=== PATIENT | female | born 1935 | race Caucasian/White ===

== ENCOUNTER 2021-04-24 11:08 | Emergency (ER) | payer MEDICARE, BC ==
--- NOTE | 2021-04-24 11:23 | EDM.PDOC ---
ED HPI GENERAL MEDICAL PROBLEM - General Chief Complaint: ENT Problem Stated Complaint: FACE INJURY Time Seen by Provider: 04/24/21 11:22 Source of Information: Reports: Patient, Family - History of Present Illness INITIAL COMMENTS - FREE TEXT/NARRATIVE: Kaye, 85-year-old female, presents today accompanied by her granddaughter for evaluation of what appears to be raccoons eyes. Yesterday afternoon at roughly 1600 hrs. tripped on a folding chair in the yard falling forward striking the bridge of her nose with her glasses onto the edge of the chair. She did not get her arms out in an attempt to catch herself. She denies loss of consciousness. She denies headache or change in mentation at the time of the incident, nor since then. She did have a significant epistaxis event which was controlled with pressure and time. There was minimal evidence other than where the pads of her glasses struck the bridge of the nose as far as any injury. Minimal swelling to place at that time and when they finished their family gathering she went home with her granddaughter to prepare for bed with no complaints other than mild tenderness to the dentures under the nose. She removed her dentures for cleaning and states there is no fractures or cracks noted in them but does note discomfort when returning them this morning with a pressure sensation under the nose of the maxilla and the nose itself to the medial zygomatic region. Granddaughter did a thorough assessment that there was no nystagmus extraocular motion was intact with no evidence of entrapment and that there was no urgent/emergent criteria that they felt she needed to be evaluated at the time of the incident. She is brought in this morning secondary of significant ecchymosis that presented as well as associated facial pain. She is on Plavix so risk of bleeding is slightly higher. This was a ground-level fall with no contributing factors for trauma activation. Onset Date: 04/23/21 Onset Time: 16:00 Duration: Hour(s):, Getting Worse Location: Reports: Head, Face Quality: Reports: Other (Denies any pain to the head, has mild tenderness to the base of the nostrils bilateral as well as to the medial zygoma region.) Bilateral Middle Face/Facial Pain Score (Numeric/FACES): 0 - Related Data Allergies Allergy/AdvReac Type Severity Reaction Status Date / Time Penicillins Allergy Mild Swelling Verified 04/24/21 11:52 Home Meds: Home Meds Insulin Glarg,Human.Rec.Analog [Lantus Solostar] 12 units SUBCUT BEDTIME 01/14/15 [History] Losartan Potassium 100 mg PO BEDTIME 01/14/15 [History] Metoprolol Succinate [Toprol XL] 100 mg PO BEDTIME 01/14/15 [History] Potassium Chloride 10 meq PO BEDTIME 01/14/15 [History] Sertraline [Zoloft] 100 mg PO BEDTIME 01/14/15 [History] metFORMIN HCl [Metformin HCl ER] 1,000 mg PO BEDTIME 01/14/15 [History] Calcium Carbonate/Vitamin D3 [Calcium 600 + Vit D Tablet] 1 tab PO DAILY 07/27/16 [History] Cholecalciferol (Vitamin D3) [Vitamin D3] 2,000 unit PO BEDTIME 07/27/16 [History] Clopidogrel [Plavix] 75 mg PO BEDTIME 07/27/16 [History] Cyanocobalamin/Folic AC/Vit B6 [Folbee] 1 each PO BEDTIME 07/27/16 [History] Denosumab [Prolia] 60 mg SUBCUT ASDIRECTED 07/27/16 [History] Multivitamin [Multivitamins] 1 tab PO BEDTIME 07/27/16 [History] Pantoprazole Sodium [Protonix] 20 mg PO BEDTIME 07/28/16 [History] amLODIPine [Norvasc] 10 mg PO BEDTIME 07/28/16 [History] atorvaSTATin [Lipitor] 40 mg PO BEDTIME 07/28/16 [History] cloNIDine [Catapres] 0.1 mg PO TID PRN 07/04/18 [History] Latanoprost [Xalatan 0.005% Ophth Soln] 1 drop EYEBOTH BEDTIME 07/05/18 [History ] Meclizine [Antivert] 25 mg PO Q6H PRN #30 tablet 07/17/18 [Rx] Doxycycline Hyclate 100 mg PO BID 5 Days #10 capsule 04/24/21 [Rx] metFORMIN [Glucophage XR] 1,000 mg PO DAILY 04/24/21 [History] Past Medical History HEENT History: Reports: Cataract, Impaired Vision, Other (See Below) (Dentures upper/lower) Cardiovascular History: Reports: High Cholesterol, Hypertension Respiratory History: Reports: None Gastrointestinal History: Reports: Colon Polyp, Hemorrhoids Genitourinary History: Reports: Urinary Incontinence 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: Musculoskeletal History: Reports: Arthritis, Osteoarthritis Neurological History: Reports: CVA, Migraines, Neuropathy, Diabetic Psychiatric History: Reports: Depression Endocrine/Metabolic History: Reports: Diabetes, Type II, Osteoporosis Hematologic History: Reports: Anticoagulation Therapy Oncologic (Cancer) History: Reports: None Dermatologic History: Reports: None - Infectious Disease History Infectious Disease History: Reports: Measles, Mumps - Past Surgical History HEENT Surgical History: Reports: Cataract Surgery - Past Imaging History Past Imaging History: Reports: Carotid US, CAT Scan, MRI, Xray Social & Family History - Family History Family Medical History: No Pertinent Family History Cardiac: Reports: Heart Failure, Hypertension Respiratory: Reports: None GI: Reports: None : Reports: None OBGYN: Reports: None Musculoskeletal: Reports: None Neurological: Reports: None Psychiatric: Reports: None Endocrine/Metabolic: Reports: Diabetes, type II Hematologic: Reports: None Immunologic: Reports: None Dermatologic: Reports: None Oncologic: Reports: None - Caffeine Use Caffeine Use: Reports: Coffee ED ROS GENERAL - Review of Systems Review Of Systems: Comprehensive ROS is negative, except as noted in HPI. ED EXAM, GENERAL - Physical Exam Exam: See Below Free Text/Narrative:: Alert, oriented, cheerful in no acute distress. She demonstrates NO deficits to motion of extremities, nor to following command. Quite evident bilateral Mary eyes are present with no entrapment of her extraocular ocular motion. PERRLA, somewhat constricted as would be typical for age. Limited nondilated funduscopy is benign. There is no involvement of the auditory canals or tympanic membranes, negative hemotympanum. Mild tenderness as would be expected to the zygomatic arch medially and to the nose. There are imprints with superficial skin irritation/abrasions from the pads of her glasses to the bilateral bridge of the nose with no evidence of infectious or irritated process. Nasal passages are swollen as well as the nose in general. Tenderness to the bridge of the nose as well as the medial zygomatic arch and to the base of the nose at the septum. There is no tenderness to the spinal processes with negative Nexus criteria. There is mild musculature at the base of the neck and bilateral into the shoulders. No irritation of the oral cavity is noted her dentures are in place and appear to be appropriately fitting with no significant malocclusion, but tenderness under the nose with closure of the teeth. Thorax is clear, slightly diminished bases with no wheezes no crackles. Cardiac is regular with an occasional ectopic beat no evidence of murmur. There is no injury nor complaint to the upper extremities chest wall abdomen pelvis or lower extremities. She is ambulatory with no deficits appreciated. AFO in place. Tenderness to the facial bones on examination, with the visual appearance seemingly much more severe than the actual physical findings at this time. Course - Vital Signs Last Recorded V/S: Last Vital Signs Temp 96.5 F L 04/24/21 11:24 Pulse 60 04/24/21 13:30 Resp 18 04/24/21 13:30 BP 158/65 H 04/24/21 13:30 Pulse Ox 94 L 04/24/21 13:30 - Orders/Labs/Meds Orders: Active Orders 24 hr Category Date Time Status Vaccines to be Administered [RC] PER UNIT ROUTINE Care 04/24/21 13:45 Ordered Meds: Medications Discontinued Medications Generic Name Dose Route Start Last Admin Trade Name Freq PRN Reason Stop Dose Admin Diphtheria/Tetanus/Acell Pertussis 0.5 ml 04/24/21 13:45 04/24/21 13:51 Diphtheria,Pertussis(Acell),Tetanus Vaccine 0.5 Ml Syringe IM 04/24/21 13:46 0.5 ml .ONCE ONE Administration Doxycycline Hyclate 400 mg 04/24/21 13:57 04/24/21 14:07 Doxycycline 50 Mg Cap PO 04/24/21 13:58 400 mg ONETIME ONE Administration Departure - Departure Time of Disposition: 14:06 Disposition: Home, Self-Care 01 Condition: Good Clinical Impression: Fractured nasal bones, Fall as cause of accidental injury at home as place of occurrence, Facial swelling, Anticoagulant long-term use, Abrasion of nose, initial encounter - Discharge Information *PRESCRIPTION DRUG MONITORING PROGRAM REVIEWED*: Not Applicable *COPY OF PRESCRIPTION DRUG MONITORING REPORT IN PATIENT JOVANI: Not Applicable Prescriptions: Doxycycline Hyclate 100 mg PO BID 5 Days #10 capsule Instructions: Nasal Fracture, [id number], Abrasion, [id number] Referrals: Marjan Thomas NP [Primary Care Provider] - Forms: ED Department Discharge Additional Instructions: You have fractured your nose, there is slight deviation of the septum to the right. No other facial injuries of the bone structure is noted. There was no evidence of any damage to the skull or brain. Your tetanus status was updated as it was due. The fact that you abrasions to the skin over the site of the fracture puts you at a higher risk of infectious concerns with a noted fracture. Although this is not what we would consider an open fracture, putting you on antibiotic for the skin involvement that is very close to the fracture site is the safest route to go. You will take doxycycline 100 mg twice daily for 1 week to prevent infection development. You can take all of your medications as directed with no change in your regular regimen. You may take acetaminophen/Tylenol as needed for pain up to 3000 mg total daily. You may continue to apply ice to help control swelling as well as discomfort. You need to contact your clinic for recheck appointment preferably by in the event that you need urgent consult with ENT. Typically ENT will not perform any procedures with the significance of the swelling you have at this time as some of the deviation may correct itself as swelling reduces. This opinion would change if you are experiencing persistent bleeding or difficulty breathing. You need to be sooner at the clinic or return to the emergency department if you should develop difficulty breathing, or bleeding that is not controlled with pressure to the nose. Sepsis Event Note (ED) - Focused Exam Vital Signs: Vital Signs Temp Pulse Resp BP Pulse Ox 04/24/21 13:30 60 18 158/65 H 94 L 04/24/21 12:45 60 18 164/67 H 93 L 04/24/21 12:00 60 18 156/67 H 94 L 04/24/21 11:30 63 20 162/68 H 96 04/24/21 11:24 96.5 F L 65 18 165/65 H 04/24/21 11:20 96.5 F L 65 18 165/65 H - Problem List & Annotations (1) Fall as cause of accidental injury at home as place of occurrence SNOMED Code(s): 15807514 Code(s): W19.XXXA - UNSPECIFIED FALL, INITIAL ENCOUNTER; Y92.009 - UNSP PLACE IN UNSP NON-[facility]ENCE [facility] Status: Acute Priority: High Current Visit: Yes Qualifiers: Encounter type: initial encounter Qualified Code(s): W19.XXXA - Unspecified fall, initial encounter; Y92.009 - Unspecified place in unspecified non- institutional (private) residence as the place of occurrence of the external cause (2) Facial swelling SNOMED Code(s): 741411500 Code(s): R22.0 - LOCALIZED SWELLING, MASS AND LUMP, HEAD Status: Acute Priority: High Current Visit: Yes (3) Traumatic ecchymosis of face SNOMED Code(s): 510523291, 562636801 Code(s): S00.83XA - CONTUSION OF OTHER PART OF HEAD, INITIAL ENCOUNTER Status: Acute Priority: High Current Visit: Yes Qualifiers: Encounter type: initial encounter Qualified Code(s): S00.83XA - Contusion of other part of head, initial encounter (4) Anticoagulant long-term use SNOMED Code(s): 672972843 Code(s): Z79.01 - SENIOR LIVING (CURRENT) USE OF ANTICOAGULANTS Status: Acute Current Visit: Yes Annotation/Comment:: Plavix (5) Fractured nasal bones SNOMED Code(s): 132616835 Code(s): S02.2XXA - FRACTURE OF NASAL BONES, INIT ENCNTR FOR CLOSED FRACTURE Status: Acute Priority: High Current Visit: Yes Qualifiers: Encounter type: initial encounter Fracture type: closed Qualified Cod e(s): S02.2XXA - Fracture of nasal bones, initial encounter for closed fracture (6) Abrasion of nose, initial encounter SNOMED Code(s): 797476480 Code(s): S00.31XA - ABRASION OF NOSE, INITIAL ENCOUNTER Status: Acute Priority: High Current Visit: Yes - Problem List Review Problem List Initiated/Reviewed/Updated: Yes - My Orders Last 24 Hours: My Active Orders 04/24/21 13:45 Vaccines to be Administered [RC] PER UNIT ROUTINE - Assessment/Plan Last 24 Hours: My Active Orders 04/24/21 13:45 Vaccines to be Administered [RC] PER UNIT ROUTINE Plan: You have fractured your nose, there is slight deviation of the septum to the right. No other facial injuries of the bone structure is noted. There was no evidence of any damage to the skull or brain. Your tetanus status was updated as it was due. The fact that you abrasions to the skin over the site of the fracture puts you at a higher risk of infectious concerns with a noted fracture. Although this is not what we would consider an open fracture, putting you on antibiotic for the skin involvement that is very close to the fracture site is the safest route to go. You will take doxycycline 100 mg twice daily for 1 week to prevent infection development. You can take all of your medications as directed with no change in your regular regimen. You may take acetaminophen/Tylenol as needed for pain up to 3000 mg total daily. You may continue to apply ice to help control swelling as well as discomfort. You need to contact your clinic for recheck appointment preferably by in the event that you need urgent consult with ENT. Typically ENT will not perform any procedures with the significance of the swelling you have at this time as some of the deviation may correct itself as swelling reduces. This opinion would change if you are experiencing persistent bleeding or difficulty breathing. You need to be sooner at the clinic or return to the emergency department if you should develop difficulty breathing, or bleeding that is not controlled with pressure to the nose.
--- NOTE | 2021-04-24 13:25 | CT ---
[id number] CT/CT Head WO IV EXAM: CT Head WO IV CLINICAL DATA: FALL, "COON EYES", FACIAL PAIN. COMPARISON STUDY: None FINDINGS: No intracranial hemorrhage, extra-axial fluid collection, mass, or acute ischemia. Generalized parenchymal atrophy with scattered areas of nonspecific white matter disease, commonly seen as sequela of chronic microvascular ischemia. Soft tissues are unremarkable. Paranasal sinuses and mastoid air cells are clear. IMPRESSION: No acute intracranial findings. Chu Green DO 04/24/21 2088 Thank you for allowing us to participate in the care of your patient.
--- NOTE | 2021-04-24 13:26 | CT ---
[id number] CT/CT Facial Bones WO IV EXAM: CT FACIAL BONES. INDICATION: FALL, "COON EYES". COMPARISON: None. DISCUSSION: Acute multi fragmentary bilateral nasal bone fractures. The nasal septum is deviated to the right. No other facial bone fractures are identified. The paranasal sinuses are normally aerated. No air-fluid levels. Left periorbital soft tissue edema. The globes are intact. IMPRESSION: 1. Acute multi fragmentary bilateral nasal bone fractures. No other facial bone fractures are identified. Chu Green DO 04/24/21 3478 Thank you for allowing us to participate in the care of your patient.
[2021-04-24 13:42] VITALS: PULSE 60
[2021-04-24] MEDS ORDERED: Diphtheria,Pertussis(Acell),Tetanus Vaccine 0.5 ML Syringe IM ONE (13:45)
[2021-04-24 13:46] VITALS: BP 158/65
== END 2021-04-24 14:25 | disposition home or self-care (01) ==
LOC: KA.ED 11:08
DX: S02.2XXA Fracture of nasal bones, initial encounter for closed fracture (principal); E78.00 Pure hypercholesterolemia, unspecified; I10 Essential (primary) hypertension; E11.40 Type 2 diabetes mellitus with diabetic neuropathy, unspecified; Z86.73 Personal history of transient ischemic attack (TIA), and cerebral infarction without residual deficits; Z88.0 Allergy status to penicillin; Z79.01 Long term (current) use of anticoagulants; Z23 Encounter for immunization; W01.198A Fall on same level from slipping, tripping and stumbling with subsequent striking against other object, initial encounter; Y92.009 Unspecified place in unspecified non-institutional (private) residence as the place of occurrence of the external cause
CPT/HCPCS: 70450; 70486; 90471; 90715; 99283-25; 99284; A9270-GY

== ENCOUNTER 2023-01-23 18:55 | Observation (INO) | payer MEDICARE, BC ==
[2023-01-23] MEDS ORDERED: Sodium Chloride 0.9% 10 ML Syringe FLUSH PRN (19:03)
[2023-01-23 19:27] LABS: BASOPHILS ABSOLUTE AUTO 0.03 10^3/uL (0.00-0.10); BASOPHILS PERCENT AUTO 0.6 % (0.0-1.0); EOSINOPHILS ABSOLUTE AUTO 0.09 10^3/uL (0.10-0.30); EOSINOPHILS PERCENT AUTO 1.8 % (1.0-3.0); HEMATOCRIT 32.8 % (37.0-47.0); HEMOGLOBIN 10.9 g/dL (12.0-16.0); IMMATURE GRAN ABSOLUTE AUTO 0.01 10^3/uL (0.00-0.50); IMMATURE GRAN PERCENT AUTO 0.2 % (0.0-5.0); LYMPHOCYTES ABSOLUTE AUTO 1.39 10^3/uL (1.00-4.00); LYMPHOCYTES PERCENT AUTO 27.7 % (20.0-40.0); MEAN CORPUSCULAR HEMOGLOBIN 28.8 pg (27.0-31.0); MEAN CORPUSCULAR HGB CONC 33.2 g/dL (32.0-36.0); MEAN CORPUSCULAR VOLUME 86.8 fL (82.0-92.0); MEAN PLATELET VOLUME 10.6 fL (7.4-10.4); MONOCYTES ABSOLUTE AUTO 0.78 10^3/uL (0.10-0.80); MONOCYTES PERCENT AUTO 15.6 % (2.0-8.0); NEUTROPHILS ABSOLUTE AUTO 2.71 10^3/uL (2.50-7.00); NEUTROPHILS PERCENT AUTO 54.1 % (50.0-70.0); PLATELET COUNT,PLT 144 10^3/uL (150-400); RED BLOOD CELL COUNT 3.78 10^6/uL (3.80-5.50); RED CELL DISTRIBUTION WIDTH 14.1 % (11.5-14.5); WHITE BLOOD CELL COUNT,WBC 5.01 10^3/uL (5.00-10.00)
[2023-01-23 19:46] LABS: ALBUMIN 3.49 g/dL (3.40-5.00); ANION GAP 11.9 mmol/L (5-15); BILIRUBIN TOTAL 0.4 mg/dL (0.2-1.0); CARBON DIOXIDE,CO2 29.5 mmol/L (21.0-32.0); EST CRCL DRUG DOSING (CG) 34.87 mL/min; POTASSIUM,K 4.4 mmol/L (3.5-5.1); PROTEIN TOTAL,TP 6.9 g/dL (6.4-8.2)
[2023-01-23 19:49] LABS: PROTHROMBIN TIME 10.2 SEC (9.2-11.2); PTT,PARTIAL THROMBOPLSTIN TIME 21.7 SEC (22.8-31.4)
[2023-01-23] MEDS ORDERED: Aspirin 81 MG Tab.Chew PO ONE (20:24)
[2023-01-23] MEDS ORDERED: Meclizine 25 MG Tab PO PRN (22:30)
[2023-01-24] MEDS: metFORMIN 500 MG Tab.ER PO SCH (08:15)
[2023-01-24] MEDS: Lutein/Minerals/Vitamins A, C & E Tab PO SCH (08:15)
[2023-01-24] MEDS: Metoprolol Succinate 50 MG Tab.ER PO SCH (08:17)
[2023-01-24] MEDS ORDERED: amLODIPine 2.5 MG Tab PO SCH (09:00)
[2023-01-24] MEDS ORDERED: Hydrochlorothiazide 12.5 MG Cap PO SCH (09:00)
[2023-01-24] MEDS: Aspirin 325 MG Tab.EC PO SCH (20:00)
[2023-01-24] MEDS ORDERED: Sertraline 50 MG Tab PO SCH (21:00)
[2023-01-24] MEDS ORDERED: Pantoprazole 20 MG Tab, Delayed Release PO SCH (21:00)
[2023-01-24] MEDS ORDERED: Clopidogrel 75 MG Tab PO SCH (21:00)
[2023-01-24] MEDS ORDERED: Cholecalciferol (Vitamin D3) 25 MCG Tab PO SCH (21:00)
[2023-01-24] MEDS ORDERED: Losartan 50 MG Tab PO SCH (21:00)
[2023-01-24] MEDS ORDERED: atorvaSTATin 40 MG Tab PO SCH (21:00)
[2023-01-25] MEDS: Metoprolol Succinate 50 MG Tab.ER PO SCH (09:00)
[2023-01-25 09:01] VITALS: BP 114/56; PULSE 70
[2023-01-25] MEDS: Aspirin 325 MG Tab.EC PO SCH (09:01)
[2023-01-25] MEDS: Lutein/Minerals/Vitamins A, C & E Tab PO SCH (09:01)
[2023-01-25] MEDS: metFORMIN 500 MG Tab.ER PO SCH (09:01)
[2023-01-25] MEDS ORDERED: Losartan 50 MG Tab PO SCH (21:00)
== END 2023-01-25 10:10 ==
LOC: KA.ED 18:55 → UNDOADMOB 20:27 → KA.MS 20:27
PROVIDERS: ADMIT Family Medicine; ATTEND Family Medicine
DX: R53.1 Weakness (principal); I65.23 Occlusion and stenosis of bilateral carotid arteries; I10 Essential (primary) hypertension; M81.0 Age-related osteoporosis without current pathological fracture; K21.9 Gastro-esophageal reflux disease without esophagitis; F32.A Depression, unspecified; E78.00 Pure hypercholesterolemia, unspecified; G43.909 Migraine, unspecified, not intractable, without status migrainosus; E11.40 Type 2 diabetes mellitus with diabetic neuropathy, unspecified; Z79.84 Long term (current) use of oral hypoglycemic drugs; Z86.73 Personal history of transient ischemic attack (TIA), and cerebral infarction without residual deficits; Z79.899 Other long term (current) drug therapy; Z79.82 Long term (current) use of aspirin; Z98.890 Other specified postprocedural states; Z88.0 Allergy status to penicillin; Z79.4 Long term (current) use of insulin
CPT/HCPCS: 36415; 70450; 71045; 80053; 82947; 84484; 85025; 85610; 85730; 93005; 97161-GP; 99285; A9270-GY; G0378; Q3014

== ENCOUNTER 2023-08-27 17:45 | Emergency (ER) | payer MEDICARE, BC ==
[2023-08-27] MEDS ORDERED: Sodium Chloride 0.9% 10 ML Syringe FLUSH PRN (17:50)
[2023-08-27] MEDS ORDERED: hydrALAZINE 20 MG/ML SDV IVPUSH ONE (18:17)
[2023-08-27 18:30] LABS: BASOPHILS ABSOLUTE AUTO 0.01 10^3/uL (0.00-0.10); BASOPHILS PERCENT AUTO 0.2 % (0.0-1.0); EOSINOPHILS ABSOLUTE AUTO 0.16 10^3/uL (0.10-0.30); EOSINOPHILS PERCENT AUTO 3.2 % (1.0-3.0); HEMATOCRIT 32.5 % (37.0-47.0); HEMOGLOBIN 10.7 g/dL (12.0-16.0); IMMATURE GRAN ABSOLUTE AUTO 0.01 10^3/uL (0.00-0.50); IMMATURE GRAN PERCENT AUTO 0.2 % (0.0-5.0); LYMPHOCYTES ABSOLUTE AUTO 0.69 10^3/uL (1.00-4.00); LYMPHOCYTES PERCENT AUTO 13.7 % (20.0-40.0); MEAN CORPUSCULAR HEMOGLOBIN 26.7 pg (27.0-31.0); MEAN CORPUSCULAR HGB CONC 32.9 g/dL (32.0-36.0); MEAN PLATELET VOLUME 9.9 fL (7.4-10.4); MONOCYTES ABSOLUTE AUTO 0.43 10^3/uL (0.10-0.80); MONOCYTES PERCENT AUTO 8.5 % (2.0-8.0); NEUTROPHILS ABSOLUTE AUTO 3.74 10^3/uL (2.50-7.00); NEUTROPHILS PERCENT AUTO 74.2 % (50.0-70.0); PLATELET COUNT,PLT 140 10^3/uL (150-400); RED BLOOD CELL COUNT 4.01 10^6/uL (3.80-5.50); WHITE BLOOD CELL COUNT,WBC 5.04 10^3/uL (5.00-10.00)
[2023-08-27 18:32] LABS: ALBUMIN 3.35 g/dL (3.40-5.00); ANION GAP 11.1 mmol/L (5-15); BILIRUBIN TOTAL 0.3 mg/dL (0.2-1.0); CALCIUM 8.7 mg/dL (8.7-10.3); CARBON DIOXIDE,CO2 29.6 mmol/L (21.0-32.0); CREATININE 0.71 mg/dL (0.51-1.17); EST CRCL DRUG DOSING (CG) 44.98 mL/min; POTASSIUM,K 3.7 mmol/L (3.5-5.1); PROTEIN TOTAL,TP 6.9 g/dL (6.4-8.2)
[2023-08-27] MEDS ORDERED: Ondansetron 4 MG/2 ML SDV IVPUSH ONE (19:26)
[2023-08-27] MEDS ORDERED: Sodium Chloride 0.9% 500 ML IV ONE (20:25)
[2023-08-27 20:58] LABS: APPEARANCE,URINE SLIGHTLY CLOUDY (CLEAR); BILIRUBIN,URINE NEGATIVE (NEGATIVE); COLOR,URINE LIGHT YELLOW (YELLOW); GLUCOSE,URINE NEGATIVE (NEGATIVE); KETONES,URINE NEGATIVE (NEGATIVE); LEUKOCYTE ESTERASE,URINE TRACE (NEGATIVE); NITRITE,URINE POSITIVE (NEGATIVE); OCCULT BLOOD,URINE TRACE-INTACT (NEGATIVE); PROTEIN,URINE 100 mg/dL (NEGATIVE); UROBILINOGEN,URINE 0.2 E.U./dL (0.2-1.0)
[2023-08-27 21:08] LABS: BACTERIA,URINE MODERATE /HPF (NONE TO FEW); RBC,URINE 0-5 /HPF (0-5)
[2023-08-27 21:09] LABS: EPITHELIAL CELLS,URINE FEW /LPF
[2023-08-27] MEDS ORDERED: Ciprofloxacin 500 MG Tab PO ONE (21:19)
[2023-08-27 21:21] VITALS: BP 162/71; PULSE 69
== END 2023-08-27 21:41 ==
LOC: KA.ED 17:45
DX: G40.89 Other seizures (principal); F41.9 Anxiety disorder, unspecified
CPT/HCPCS: 80053; 81001; 84484; 85025; 87086; 87088; 96374; 96375; 99285; A9270; J0360; J2405; J7030; Q3014; 99284; J3490

== ENCOUNTER 2023-09-26 12:54 | Emergency (ER) | payer MEDICARE, BC ==
[2023-09-26] MEDS ORDERED: Sodium Chloride 0.9% 10 ML Syringe FLUSH PRN (13:02)
[2023-09-26 13:27] VITALS: PULSE 60
[2023-09-26 13:29] LABS: BASOPHILS ABSOLUTE AUTO 0.02 10^3/uL (0.00-0.10); BASOPHILS PERCENT AUTO 0.3 % (0.0-1.0); EOSINOPHILS ABSOLUTE AUTO 0.08 10^3/uL (0.10-0.30); EOSINOPHILS PERCENT AUTO 1.1 % (1.0-3.0); HEMATOCRIT 36.7 % (37.0-47.0); HEMOGLOBIN 11.9 g/dL (12.0-16.0); IMMATURE GRAN ABSOLUTE AUTO 0.01 10^3/uL (0.00-0.50); IMMATURE GRAN PERCENT AUTO 0.1 % (0.0-5.0); LYMPHOCYTES ABSOLUTE AUTO 0.88 10^3/uL (1.00-4.00); LYMPHOCYTES PERCENT AUTO 11.9 % (20.0-40.0); MEAN CORPUSCULAR HEMOGLOBIN 26.9 pg (27.0-31.0); MEAN CORPUSCULAR HGB CONC 32.4 g/dL (32.0-36.0); MEAN CORPUSCULAR VOLUME 82.8 fL (82.0-92.0); MEAN PLATELET VOLUME 10.2 fL (7.4-10.4); MONOCYTES ABSOLUTE AUTO 1.18 10^3/uL (0.10-0.80); MONOCYTES PERCENT AUTO 15.9 % (2.0-8.0); NEUTROPHILS ABSOLUTE AUTO 5.24 10^3/uL (2.50-7.00); NEUTROPHILS PERCENT AUTO 70.7 % (50.0-70.0); PLATELET COUNT,PLT 146 10^3/uL (150-400); RED BLOOD CELL COUNT 4.43 10^6/uL (3.80-5.50); RED CELL DISTRIBUTION WIDTH 14.8 % (11.5-14.5); WHITE BLOOD CELL COUNT,WBC 7.41 10^3/uL (5.00-10.00)
[2023-09-26 13:40] LABS: ALBUMIN 3.61 g/dL (3.40-5.00); ANION GAP 14.6 mmol/L (5-15); BILIRUBIN TOTAL 0.5 mg/dL (0.2-1.0); CALCIUM 9.3 mg/dL (8.7-10.3); CARBON DIOXIDE,CO2 28.3 mmol/L (21.0-32.0); CREATININE 0.77 mg/dL (0.51-1.17); EST CRCL DRUG DOSING (CG) 39.57 mL/min; POTASSIUM,K 3.9 mmol/L (3.5-5.1); PROTEIN TOTAL,TP 7.2 g/dL (6.4-8.2)
[2023-09-26 14:14] LABS: APPEARANCE,URINE TURBID (CLEAR); BILIRUBIN,URINE NEGATIVE (NEGATIVE); COLOR,URINE LIGHT YELLOW (YELLOW); GLUCOSE,URINE NEGATIVE (NEGATIVE); KETONES,URINE NEGATIVE (NEGATIVE); LEUKOCYTE ESTERASE,URINE SMALL (NEGATIVE); NITRITE,URINE POSITIVE (NEGATIVE); OCCULT BLOOD,URINE LARGE (NEGATIVE); PROTEIN,URINE 100 mg/dL (NEGATIVE); UROBILINOGEN,URINE 0.2 E.U./dL (0.2-1.0)
[2023-09-26 14:23] LABS: BACTERIA,URINE MANY /HPF (NONE TO FEW); EPITHELIAL CELLS,URINE MANY /LPF
[2023-09-26] MEDS: cefTRIAXone 1 GM Vial IVPUSH ONE (14:38)
[2023-09-26] MEDS: Enalaprilat 1.25 MG/ML SDV IVPUSH ONE (14:49)
[2023-09-26 14:52] VITALS: BP 198/81
== END 2023-09-26 15:30 ==
LOC: KA.ED 12:54
DX: R41.0 Disorientation, unspecified (principal); N39.0 Urinary tract infection, site not specified; S62.115A Nondisplaced fracture of triquetrum [cuneiform] bone, left wrist, initial encounter for closed fracture; I10 Essential (primary) hypertension; E78.00 Pure hypercholesterolemia, unspecified; K21.9 Gastro-esophageal reflux disease without esophagitis; E11.9 Type 2 diabetes mellitus without complications; Z88.0 Allergy status to penicillin; Z79.82 Long term (current) use of aspirin; Z79.84 Long term (current) use of oral hypoglycemic drugs; Z79.899 Other long term (current) drug therapy; X58.XXXA Exposure to other specified factors, initial encounter
CPT/HCPCS: 36415; 70450; 71045; 73110-LT; 80053; 81001; 83605; 85025; 87086; 87088; 87186; 96374; 96375; 99285-25; J0696; J3490